=== PATIENT | female | born 1995 | race Caucasian/White ===

== ENCOUNTER 2016-11-30 17:33 | Emergency (ER) | payer OTHER ==
[2016-11-30 17:39] VITALS: TEMP 36.7
[2016-11-30] MEDS ORDERED: SODIUM CHLORIDE 0.9% 1000ML 1,000 ML IV STA (17:52)
[2016-11-30] MEDS ORDERED: KETOROLAC TROMETHAMINE 30 MG/ML VIAL IV STA (17:52)
[2016-11-30] MEDS ORDERED: DiphenhydrAMINE HCL 50 MG/ML VIAL IV STA (17:52)
[2016-11-30] MEDS ORDERED: PROCHLORPERAZINE 5 MG/ML 2 ML VIAL IV STA (17:52)
[2016-11-30] MEDS ORDERED: METH500T37 PO (18:25)
[2016-11-30] MEDS ORDERED: NAPR500T3 PO (18:25)
[2016-11-30 19:01] VITALS: BP 107/67; PULSE 70; O2SAT 100
--- NOTE | 2016-11-30 19:54 | EMERGENCY ROOM VISIT NOTE ---
History Report prepared by Sarah: Lidia Tidwell Under the Supervision of: Dr. Rahul Louie M.D. First contact with patient: 17:46 Chief Complaint: HEADACHE Stated Complaint: HEADACHE,WEAKNESS,HAS PERIOD History of Present Illness The patient is a 21 year old female who presents to the Emergency Room with complaints of persistent headache starting this morning. The patient has a history of migraines. Her headache is currently on the left side of her head, but it is alternating sides. He has not experienced this kind of headache before. She currently rates her discomfort as a 9/10 in severity. Her headache started gradually. She denies any neck pain or abdominal pain. She denies any chance of . Her period started today. She has been avoiding dairy recently because she is lactose intolerant. Source of History: patient Onset: this morning Position: head Symptom Intensity: 9/10 Quality: ache Timing: other (persistent) Associated Symptoms: No neck pain, No abdominal pain Review of Systems See HPI for pertinent positives & negatives. A total of 10 systems reviewed and were otherwise negative. Past Medical & Surgical Medical Problems: (1) No Known Active Medical Problems Family History Patient reports no known family medical history. Social History Smoking Status: Never Smoker Drug Use: none Marital Status: single Housing Status: lives with friends Occupation Status: student Current/Historical Medications Scheduled PRN Methocarbamol (Robaxin), 500 MG PO QID PRN for Muscle Spasms Naproxen (Naproxen), 500 MG PO BID PRN for Pain Ondasetron Odt (Zofran Odt), 4 MG SL Q8H PRN for Nausea Allergies Coded Allergies: No Known Allergies (Unverified , 02/16/16) Physical Exam Vital Signs Date Time Temp Pulse Resp B/P (MAP) Pulse Ox O2 Delivery O2 Flow Rate FiO2 11/30/16 19:01 70 18 107/67 100 Room Air 11/30/16 17:39 36.7 66 18 114/87 95 Room Air Physical Exam GENERAL: Patient is a healthy-appearing well-nourished female HEAD: Normocephalic atraumatic EYES: Ocular movements intact pupils equal and react to light OROPHARYNX mucous membranes are moist no exudates present no erythema or edema present NECK: Supple no nuchal rigidity no evidence of encephalitis or meningitis on exam CHEST: Good equal expansion LUNGS: Clear and equal to auscultation CARDIAC: Normal S1 and S2 ABDOMEN: Soft nontender no guarding BACK: No CVA tenderness EXTREMITIES: No pain upon palpation normal muscle strength in all groups no clubbing cyanosis or edema NEURO: Patient is following commands and answering questions appropriately. Alert and oriented x3 Cranial Nerves 2-12 grossly intact Medical Decision & Procedures Medications Administered Medications (Trade) Dose Ordered Sig/Kellen Route Start Time Stop Time Status Last Admin Dose Admin Sodium Chloride 1,000 ml @ 999 mls/hr Q1H1M STAT IV 11/30/16 17:52 11/30/16 18:52 DC 11/30/16 18:02 999 MLS/HR Ketorolac Tromethamine (Toradol Inj) 30 mg NOW STAT IV 11/30/16 17:52 11/30/16 17:54 DC 11/30/16 18:03 30 MG Prochlorperazine Edisylate (Compazine Inj) 5 mg NOW STAT IV 11/30/16 17:52 11/30/16 17:54 DC 11/30/16 18:02 5 MG Diphenhydramine HCl (Benadryl Inj) 50 mg NOW STAT IV 11/30/16 17:52 11/30/16 17:54 DC 11/30/16 18:03 50 MG ED Course 1748: Past medical records reviewed. The patient was evaluated in room A12B. A complete history and physical examination was performed. 1752: Benadryl Inj 50 mg IV, Compazine Inj 5 mg IV, Toradol Inj 30 mg IV, NSS 1000 ml @ 999 mls/hr IV. 1900: Upon reexamination the patient is resting comfortably. I discussed results and treatment plan with the patient. She verbalizes agreement and understanding. The patient is ready for discharge. Medical Decision Prior records/ancillary studies reviewed. Triage Nursing notes reviewed. The patient's history was concerning for headache. Differential diagnosis: Etiologies such as migraine headache, meningitis, sinusitis, CO exposure, ICH, SAH, infection, tumor, headache, sinus thrombosis, arterial dissection, as well as others were entertained. Medication Reconciliation: I attest that I have personally reviewed the patient' s current medication list Blood Pressure Screening: Patient was found to have normal blood pressure on screening and does not require follow up. This is a 21-year-old female who presents emergency department complaining of severe headache. Patient has no evidence of meningitis encephalitis on examination. The patient was given Toradol, Compazine and Benadryl. Repeat examination revealed improvement patient's symptoms I feel the patient as well as to be discharged home for follow-up with the primary care physician. Patient and family were in agreement with treatment plan. Impression Primary Impression: Headache Scribe Attestation The scribe's documentation has been prepared under my direction and personally reviewed by me in its entirety. I confirm that the note above accurately reflects all work, treatment, procedures, and medical decision making performed by me. Departure Information Dispostion Home / Self-Care Referrals Pool Porter M.D. Forms HOME CARE DOCUMENTATION FORM, IMPORTANT VISIT INFORMATION Patient Instructions Headache Pain, My [facility] Additional Instructions Follow up with DR Porter's office You have been examined and treated today on an emergency basis only. This is not a substitute for, or an effort to provide, complete comprehensive medical care. It is impossible to recognize and treat all injuries or illnesses in a single emergency department visit. It is therefore important that you follow up closely with your PCP. Call as soon as possible for an appointment. Thank you for your time and consideration. I look forward to speaking with you again soon. Please don't hesitate to call us if you have any questions. Problem Qualifiers Primary Impression: Headache Headache type: unspecified Headache chronicity pattern: unspecified pattern Intractability: not intractable Qualified Codes: R51 - Headache
[2016-11-30] MEDS ORDERED: ONDA4TAB10 SL (21:46)
== END 2016-11-30 19:23 | disposition home or self-care (01) ==
LOC: C.EDB 17:34 → C.EDA 19:23
DX: R51 Headache (principal)

== ENCOUNTER 2017-02-09 20:31 | Emergency (ER) | payer OTHER ==
[~2017-02-09] VITALS: Ht 154.9 cm; Wt 47.3 kg
[~2017-02-09 20:31] MED LIST: METH500T37 PO; NAPR500T3 PO; ONDA4TAB10 SL
[2017-02-09 20:35] VITALS: TEMP 36.6; Ht 154.9 cm; Wt 47.3 kg
[2017-02-09] MEDS ORDERED: DiphenhydrAMINE HCL 50 MG/ML VIAL IV STA (20:48)
[2017-02-09] MEDS ORDERED: PROCHLORPERAZINE 5 MG/ML 2 ML VIAL IV STA (20:48)
[2017-02-09] MEDS ORDERED: KETOROLAC TROMETHAMINE 30 MG/ML VIAL IV STA (20:48)
[2017-02-09] MEDS ORDERED: SODIUM CHLORIDE 0.9% 1000ML 1,000 ML IV STA (20:48)
[2017-02-09 23:11] VITALS: BP 119/99; PULSE 78; O2SAT 98
--- NOTE | 2017-02-10 00:05 | EMERGENCY ROOM VISIT NOTE ---
History Report prepared by Sarah: Lidia Tidwell Under the Supervision of: Dr. Keith Love M.D. First contact with patient: 20:40 Chief Complaint: HEADACHE Stated Complaint: HEADACHE,NAUSEA,VOMITING History of Present Illness The patient is a 21 year old female who presents to the Emergency Room with complaints of persistent headache starting 1600 today. She currently rates her discomfort as a 3-4/10 in severity. Her headache has improved. She has a history of migraines. Her current headache feels like her previous migraines. She is nauseous. She has tried taking Zofran. She has not tried anything else. She denies any head trauma or sick contacts. Pt denies LOC, fevers, chills, visual changes, neck pain/stiffness, thunder clap or sudden onset of headache, carbon monoxide exposure, ear problems/hearing loss, sinus congestion/recent infection, chest pain, breathing difficulties, vomiting, abdominal pain, urinary symptoms, numbness, weakness, lymphadenopathy, rash, or other complaints Source of History: patient Onset: 1600 today Position: head Symptom Intensity: 3-4/10 Quality: ache Timing: other (persistent) Associated Symptoms: + nausea Review of Systems See HPI for pertinent positives and negatives. A total of ten systems were reviewed and were otherwise negative. Past Medical & Surgical Medical Problems: (1) No Known Active Medical Problems Family History Patient reports no known family medical history. Social History Smoking Status: Never Smoker Drug Use: none Marital Status: single Housing Status: lives with friends Occupation Status: student Current/Historical Medications Scheduled PRN Ondasetron Odt (Zofran Odt), 4 MG SL Q8H PRN for Nausea Allergies Coded Allergies: No Known Allergies (Unverified , 02/09/17) Physical Exam Vital Signs Date Time Temp Pulse Resp B/P (MAP) Pulse Ox O2 Delivery O2 Flow Rate FiO2 02/09/17 23:11 78 20 119/99 98 02/09/17 22:17 74 20 109/72 100 Room Air 02/09/17 21:41 81 20 104/71 99 Room Air 02/09/17 20:35 36.6 97 18 110/79 100 Physical Exam GENERAL: Awake, alert, uncomfortable appearing, no distress HENT: Normocephalic, atraumatic. TM's normal. Oropharynx unremarkable. EYES: PERRL. EOMI. Normal conjunctiva. Sclera non-icteric. NECK: Supple. No nuchal rigidity. FROM. No JVD or bruit. RESPIRATORY: CTA CARDIAC: RRR. No murmur. ABDOMEN: Soft, non distended. No tenderness to palpation. No rebound or guarding. No masses. RECTAL: Deferred. MUSCULOSKELETAL: Unremarkable. No edema. No discoloration. Gross motor strength symmetric. NEURO: Cranial nerves 2-12 grossly intact. Normal sensorium. No sensory or motor deficits noted. Speech normal. No pronator drift. SKIN: No rash or jaundice noted. LYMPH: No adenopathy. Medical Decision & Procedures Medications Administered Medications (Trade) Dose Ordered Sig/Kellen Route Start Time Stop Time Status Last Admin Dose Admin Prochlorperazine Edisylate (Compazine Inj) 10 mg NOW STAT IV 02/09/17 20:48 02/09/17 20:49 DC 02/09/17 21:38 10 MG Sodium Chloride 1,000 ml @ 999 mls/hr Q1H1M STAT IV 02/09/17 20:48 02/09/17 21:48 DC 02/09/17 21:36 999 MLS/HR Ketorolac Tromethamine (Toradol Inj) 30 mg NOW STAT IV 02/09/17 20:48 02/09/17 20:49 DC 02/09/17 21:37 30 MG Diphenhydramine HCl (Benadryl Inj) 12.5 mg NOW STAT IV 02/09/17 20:48 02/09/17 20:49 DC 02/09/17 21:38 12.5 MG ED Course 2045: The patient was evaluated in room B5. A complete history and physical exam was performed. 2047: Benadryl Inj 12.5 mg IV, Toradol Inj 30 mg IV, NSS 1000 ml @ 999 mls/hr IV , Compazine Inj 10 mg IV. 2222: I reevaluated the patient. She is feeling much better. I discussed results and discharge instructions: she verbalized understanding and agreement. The patient is ready for discharge. Medical Decision Prior records/ancillary studies reviewed. Triage Nursing notes reviewed and agree them. The patient's history was concerning for headache. Differential diagnosis: Etiologies such as migraine headache, meningitis, sinusitis, CO exposure, ICH, SAH, infection, tumor, headache, sinus thrombosis, arterial dissection, as well as others were entertained. Physical examination findings: As above. Non-focal. ER treatment provided: IV normal saline IV Benadryl IV Toradol IV Compazine On reassessment the patient felt better. Diagnostics interpreted by me: Deferred the patient has a history of migraine headaches. She states that she gets them about once a month. This is similar to her prior migraines. She had no red flags on her review of systems. The patient was treated as above and did much better. She had resolution of symptoms and desired discharge. I did discuss referral to neurology as she does have these frequently and has not followed up with a neurologist.I gave my usual and customary discussion regarding this issue. By the evaluation outlined above emergent etiologies such as meningitis, sinusitis, CO exposure, ICH, SAH, infection, temporal arteritis, tumor, sinus thrombosis, arterial dissection, as well as others were deemed relatively unlikely. The patient was informed about the findings as listed above. All questions were answered and she was pleased with the treatment. Return instructions were outlined and the patient was discharged in stable condition. Medication Reconcilliation Current Medication List: was personally reviewed by me Blood Pressure Screening Patient's blood pressure: Normal blood pressure Blood pressure disposition: Did not require urgent referral Impression Primary Impression: Headache Scribe Attestation The scribe's documentation has been prepared under my direction and personally reviewed by me in its entirety. I confirm that the note above accurately reflects all work, treatment, procedures, and medical decision making performed by me. Departure Information Dispostion Home / Self-Care Referrals Lynette Goetz D.O. [facility] Forms HOME CARE DOCUMENTATION FORM, IMPORTANT VISIT INFORMATION Patient Instructions My [facility] Additional Instructions HEADACHE INSTRUCTIONS: DO NOT drive, drink alcohol, operate machinery, or perform dangerous activities today. You were given medications in the ER that can affect your ability to safely function or operate a vehicle. Rest today in a quiet, peaceful, dark environment and get a full 8-10 hrs of sleep tonight. Avoid loud noises, smoke/smoking, alcohol, bright lights, stress, or physical exertion today to minimize the chance the headache may return. Continue current medications. Ibuprofen(Motrin, Advil) may be used for fever or pain. Use 600mg every six hours as needed. Take with food. Avoid using more than 2400mg in a 24 hour period. Do not use 2400mg per day for more than three consecutive days without physician direction. Prolonged inappropriate use can lead to stomach upset or ulcers. (AND/OR) Acetaminophen(Tylenol) may be used for fever or pain. Use 1000mg every six hours as needed. Avoid using more than 4000mg in a 24 hour period. Return to the ER for passing out, worsening headache, vision problems, neck stiffness/pain, fevers, vomiting, worsening of your condition, or as needed. Follow up with [facility] neurology for a recheck of your current condition. The number is listed below under Dr. Nash.
== END 2017-02-09 23:14 | disposition home or self-care (01) ==
LOC: C.EDB 20:32
DX: R51 Headache (principal)